=== PATIENT | female | born 2000 | race Caucasian/White ===

== ENCOUNTER 2023-06-30 18:44 | Emergency (ER) | payer OTHER, SELFPAY ==
--- NOTE | 2023-06-30 18:53 | ED.URI ---
HPI - URI/Sore Throat General Chief Complaint: Upper Respiratory Infection Stated Complaint: Sore Throat Source: patient and RN notes reviewed Mode of arrival: ambulatory Limitations: no limitations History of Present Illness HPI Narrative: Patient is a 23-year-old female who presents to the [facility] with complaints of sore throat and headache that started last night. Patient denies known fevers but reports chills. She is unsure of any known sick contacts. She reports history of strep and states that her symptoms are similar to those she has experienced in the past with strep. She also endorses some mild nasal congestion. Denies recent cough. Denies chest pain or shortness of breath. Denies abdominal pain, nausea, vomiting, diarrhea. Related Data Allergies Allergy/AdvReac Type Severity Reaction Status Date / Time No Known Allergies Allergy Verified 06/30/23 19:14 Review of Systems Review of Systems: CONSTITUTIONAL: Denies fever, but reports chills. EYES: Denies visual changes, redness, or discharge. ENT: Denies otalgia. Reports sore throat. CARDIOVASCULAR: Denies chest pain, palpitations, or edema. RESPIRATORY: Denies cough or dyspnea. GASTROINTESTINAL: Denies abdominal pain, nausea, vomiting, or diarrhea. GENITOURINARY: Denies dysuria or hematuria. SKIN: Denies rash or itching. MUSCULOSKELETAL: Denies back pain, joint pain, or myalgia. NEUROLOGIC: Denies numbness or weakness. Reports headache. Pertinent positives per HPI. PMFSH Comments At the time of my signature, I reviewed and agree with the nursing past medical, surgical, social, and family history. There is no relevant family history pertinent to the patient complaint. Exam Narrative: GENERAL: This is a well-nourished, well-developed patient, in no apparent distress. HEAD: normocephalic, atraumatic. EYES: Sclera clear/white. Vision is grossly intact. EARS: External ears normal. Hearing grossly intact. NOSE: External nose normal with no obvious nasal discharge, nares without redness, no rhinorrhea. THROAT: Mucous membranes moist, Oropharyngeal erythema with exudate without ulceration. NECK: Neck supple, non-tender without lymphadenopathy, masses or thyromegaly. CARDIOVASCULAR: Regular rate and rhythm without murmurs, gallops, or rubs. RESPIRATORY: Clear to auscultation. Breath sounds equal bilaterally. No wheezes, rales, or rhonchi. GASTROINTESTINAL: Abdomen soft, non-tender, nondistended. Bowel sounds are active. No hepato-splenomegaly, or palpable masses. No guarding. SKIN: warm, intact with no suspicious lesions or rash, good texture and turgor. NEURO: awake, alert, and oriented to person, place and time. There were no obvious focal neurologic abnormalities. Course Course Level of Care: Express Care Visit Vital Signs Vital signs: Vital Signs Temperature 98.6 F 06/30/23 19:02 Pulse Rate 77 06/30/23 19:02 Respiratory Rate 16 06/30/23 19:02 Blood Pressure 115/75 06/30/23 19:02 Pulse Oximetry 100 06/30/23 19:02 Oxygen Delivery Room Air 06/30/23 19:02 Temperature 98.6 F 06/30/23 19:02 Pulse Rate 77 06/30/23 19:02 Respiratory Rate 16 06/30/23 19:02 Blood Pressure 115/75 06/30/23 19:02 Pulse Oximetry 100 06/30/23 19:02 Oxygen Delivery Room Air 06/30/23 19:02 Reviewed MDM - URI/Sore Throat MDM Narrative Medical decision making narrative: Rapid strep is negative in the office; however we will send to the lab for confirmation; there is a small percentage chance that it can come back positive; if it is, we will call you in 2-3days; and your prescription will be call in to your pharmacy. However, there is NO indication for antibiotic at this time. -Increase your fluids and Vitamin C. -Oral rinses such as: Salt water gargles and/or may use topical anesthetic (eg. Chloraseptic spray) or lozenges to relieve dryness or throat pain. -Take tylenol and ibuprofen as needed for pain and fever as directed. -
[2023-06-30 19:02] VITALS: BP 115/75; PULSE 77; RESP 16; TEMP 37; O2SAT 100
== END 2023-06-30 19:27 | disposition home or self-care (01) ==
PROVIDERS: Emergency Provider Nurse Practitioner
DX: J02.9 Acute pharyngitis, unspecified (principal)
CPT/HCPCS: 87081; 87880; 99213; G0463

== ENCOUNTER 2024-02-12 11:18 | Outpatient (CLI) | payer OTHER, SELFPAY ==
--- NOTE | ~2024-02-12 | US_ITS ---
US pelvic complete w TV Ordering provider: Jeses Queen MD History: . R ovarian cyst . Comparison: None. Technique: Transabdominal and endovaginal ultrasound of the pelvis (Doppler ultrasound interrogation techniques used as needed for this exam.) FINDINGS: CERVIX: Normal. UTERUS: Measures 7.7x 3.4x 4.1 cm in length which is within normal limits and is anteverted. No myom etrial masses. ENDOMETRIUM: Normal in thickness measuring 10.8 mm. No endometrial masses, cysts or fluid. CUL DE SAC: No free fluid. RIGHT OVARY: Normal in size measuring 3.8x 3.4x 2.8 cm. Normal echotexture. Doppler vascular flow pre sent. Anechoic simple cyst is seen measuring 2.1 x 2.3 x 1.9 cm. LEFT OVARY: Normal in size measuring 5.6x 4.5x 4.2 cm. Normal echotexture. Doppler vascular flow pres ent. Complex cyst is seen measuring 2.8 x 3.8 x 3.7 cm. Follow-up advised. ADNEXA: Normal. No mass. IMPRESSION: Simple right ovarian cyst. Complex left ovarian cyst may be hemorrhagic cyst. Follow-up advised. Othe rwise, normal pelvic ultrasound. Reviewed, dictated and finalized at location [facility] IMPRESSION: Simple right ovarian cyst. Complex left ovarian cyst may be hemorrhagic cyst. F ollow-up advised. Otherwise, normal pelvic ultrasound.
== END 2024-02-12 11:19 | disposition home or self-care (01) ==
PROVIDERS: PCP Obstetrics & Gynecology; Visit Provider Obstetrics & Gynecology
DX: N83.201 Unspecified ovarian cyst, right side (principal)
CPT/HCPCS: 76830; 76856

== ENCOUNTER 2024-07-06 09:23 | Outpatient (CLI) | payer OTHER, SELFPAY ==
--- OUTSIDE RECORDS SUMMARY | 2024-07-06 09:38 | XMS_ITS | Referral Summary ---
Author Organization [facility] Address [address] [place] [address] Care Team Providers Care Naprapath Name Role Phone Zaina Garay NP Primary Care Provider [phone] Allergies No known active allergies Medications acetaminophen (TYLENOL) 500 mg tablet Take 1 tablet (500 mg total) by mouth every 6 (six) hours as needed for pain 30 tablet 9 Active Additional Information Patient not taking.Reported on 01/27/2024 ibuprofen (ADVIL,MOTRIN) 200 mg tab/cap Take 2 tablet/capsule (400 mg total) by mouth every 6 (six) hours as needed for pain 9 Active Additional Information Patient not taking.Reported on 01/27/2024 albuterol (PROAIR RESPICLICK) 90 mcg/actuation inhaler Inhale 2 puffs every 6 (six) hours as needed Active cloNIDine (CATAPRES) 0.1 mg tablet Take 1 tablet (0.1 mg total) by mouth 2 (two) times a day 60 tablet 4 Active Additional Information Patient not taking.Reported on 01/27/2024 Active Problems Problem Noted Date Diagnosed Date Tic disorder, unspecified 02/01/2024 Assessment & Plan (02/01/2024 8:06 AM CORPORATE RESPONSIBILITY OFFICER): Spent time discussing course of illness, reviewing hospital workup and coordinating outpatient care. Referral to neurology through [facility] will trigger referral to movement disorder clinics. Will check for Lyme disease as rule out. Referral to neurology. History of malignant carcinoid tumor 01/19/2024 Jerking movements of extremities 01/18/2024 Transient motor tic 01/17/2024 Assessment & Plan (01/17/2024 10:12 PM CORPORATE RESPONSIBILITY OFFICER): Signs and symptoms consistent with transient motor tic secondary to a viral illness. Also on differential is new onset motor tic disorder including Tourette's syndrome. Minimal improvement with Ativan and Keppra. 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 Undergoes annual CT monitoring. CT abdo/pelvis: 4.5 cm x 4.2 cm cystic lesion on the right ovary. This finding would be better evaluated with pelvic ultrasound There is a small amount of free fluid within the cul-de-sac and adnexal regions bilaterally. Correlate clinically for possible ruptured ovarian cyst. Appendix surgically absent. Raynaud's phenomenon without gangrene 06/28/2020 Resolved Problems Problem Noted Date Diagnosed Date Resolved Date Cystitis 01/18/2024 02/01/2024 Carcinoid tumor of appendix, benign 08/21/2021 02/01/2024 [facility] 08/21/2021 02/01/2024 Assessment & Plan (08/24/2021 5:57 PM CDT): A(n) initial well visit to establish care has been performed today. Lizeth Pop is up to date on screening tests. She is in need of None- no screening indicated at this time. She is not up to date on needed preventative vaccinations; She is in need of Tdap/Td. Awaiting outside records. 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 02/01/2024 Abdominal pain 06/28/2020 02/01/2024 Weight loss 06/28/2020 02/01/2024 Lipoma of torso 11/12/2018 02/01/2024 Overview (11/12/2018): Added automatically from request for surgery [id number] Arthralgia of hip 05/18/2016 02/01/2024 Open wound of heel 12/07/2013 Pain in forearm 02/05/2013 02/01/2024 SOB (shortness of breath) Immunizations Immunization Administration Dates Next Due DTaP 03/27/2007, 4,2002, 003,2002 Hep A, Pediatric 07/21/2015,06/01/2014 Hep B Vaccine 2003,2002,2002 HiB 2003,2002,2002 Influenza, Unspecified 02/17/2021(Deferr ed: Patient Refused),02/18/2020(Deferred: Patient Refused) MMR 03/27/2007,2003 Meningococcal ACWY, Unspecified 08/17/2019,06/01 Pneumococcal Conjugate, Unspecified 2002,0 2002,2002 Polio, Unspecified 03/27/2007, 3,2002, 003 Tdap 06/01/2014 Varicella 03/27/2007,06/02/2003 Social History Tobacco Use Types Packs/Day Years Used Date Smoking Tobacco: Never Smokeless Tobacco: Never Tobacco Cessation:Counseling Given: No AUDIT-C Answer Date Recorded Q1: How often do you have a drink containing alcohol? Never 01/17/2024 Q2: How many drinks containi ng alcohol do you have on a typical day when you are drinking? Patient does not drink Q3: How often do you have si x or more drinks on one occasion? Never 01/17/2024 PHQ-2 Answer Date Recorded PHQ-2 Total Score (If total score is 3 or more points, staff should administer the PHQ-9) 0 01/27/2024 Exercise Vital Sign Answer Date Recorde d On average, how many days pe r week do you engage in moderate to strenuous exercise (like a brisk walk)? 4 days Minutes of Exercise per Session Not on file 08/21/2021 Personal Safety Answer Date Recorded Have you ever been in or are you currently in a harmful physical or emotional relationship or is someone making you feel afraid or unsafe? Denies 01/17/2024 Education Answer Date Recorded What is the highest level of school you have completed or the highest degree you have received? High school graduate 08/21/2021 Comments No Sex and Gender Information Value Date Recorded Sex Assigned at Not on file Legal Sex Female 4:29 AM CORPORATE RESPONSIBILITY OFFICER Gender Identity Not on file Sexual Orientation Not on file Occupation Industry Job Start Date Job End Date teacher Not on file Not on file Not on file Last Filed Vital Signs Vital Sign Reading Time Taken Comments Blood Pressure 118/78 01/27/2024 1:05 PM CORPORATE RESPONSIBILITY OFFICER Pulse 62 01/27/2024 1:05 PM CORPORATE RESPONSIBILITY OFFICER Temperature 36.6 C (97.9 F) 01/27/2024 1:05 PM CORPORATE RESPONSIBILITY OFFICER Respiratory Rate 16 01/27/2024 1:05 PM CORPORATE RESPONSIBILITY OFFICER Oxygen Saturation 99% 01/27/2024 1:05 PM CORPORATE RESPONSIBILITY OFFICER Inhaled Oxygen Concentration - - Weight 55.1 kg (121 lb 8 oz) 01/27/2024 1:05 PM CORPORATE RESPONSIBILITY OFFICER Height 160 cm (5' 3 ) 01/27/2024 1:05 PM CORPORATE RESPONSIBILITY OFFICER Body Mass Index 21.52 01/27/2024 1:05 PM CORPORATE RESPONSIBILITY OFFICER Plan of Treatment Not on file Insurance [facility] [place]ICE [place] [place] [address] [facility] CHOICE PLUS Advance Directives For more information, please contact: [phone] * Full Code (Latest Code Status on File) Date Activated Date Inactivated Comments 01/17/2024 6:41 PM 01/19/2024 9:51 PM Care Teams Naprapath Relationship Specialty Start Date End Date Zaina Garay NP [address] [facility] [address] [place] [address] PCP - General Family Medicine 02/03/24
--- OUTSIDE RECORDS SUMMARY | 2024-07-06 09:38 | XMS_ITS | Clinical Summary ---
Author Organization [facility] Address [address] [place] [address] Care Team Providers Care Child Therapist Name Role Phone Zaina Garay NP Primary Care Provider [phone] Allergies No known active allergies Medications acetaminophen [...] 02/01/2024 Assessment & Plan (02/01/2024 8:06 AM SOCIAL SECRETARY): Spent time discussing course of illness, reviewing hospital workup and coordinating outpatient care. Referral to neurology through [facility] will trigger referral to movement disorder clinics. Will check for Lyme disease as rule out. Referral to neurology. 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 Also on differential is new onset motor tic disorder including Tourette's syndrome. Minimal improvement with Ativan and Keppra. - Neurology consulted, will evaluate in morning - consider MRI brain - also consider electrolyte abnormalities although normal CMP History of appendectomy 01/17/2024 Assessment & Plan (01/17/2024 8:38 PM SOCIAL SECRETARY): Hx appendectomy for carcinoid tumour in appendix [...] benign 08/21/2021 02/01/2024 [facility] 08/21/2021 02/01/2024 Assessment [...] (11/12/2018): Added automatically from request for surgery [id number] Arthralgia of hip 05/18/2016 02/01/2024 Open wound [...] 03/27/2007, 3,2002, 003 Tdap 06/01/2014 Varicella 03/27/2007,06/02/2003 Surgical History Surgery Date Site/Laterality Comments EAR SURGERY 02/17/2009 - 02/16/2010 Left Ear Surgery - (Added by TW Conv) APPENDECTOMY 12/08/2020 Medical History Medical History Date Comments Asthma Carcinoid tumor of appendix, benign (HCC) 2021 Celiac disease Raynaud's disease without gangrene Vitiligo 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 Family History Medical History Relation Name Comments No Known Problems Brother 1 No Known Problems Brother 2 No Known Problems Father No Known Problems Mother Relation Name Status Comments Brother 1 Alive Brother 2 Alive Father Alive Maternal Grandfather Alive Maternal Grandmother Alive Mother Alive Paternal Grandfather Alive Paternal Grandmother Alive Sister Alive Social History Tobacco Use Types Packs/Day Years [...] on file Legal Sex Female 4:29 AM SOCIAL SECRETARY Gender Identity Not on file Sexual Orientation Not on file Occupation Industry Job Start Date Job End Date teacher Not on file Not on file Not on file Obstetrics History Last Filed Vital Signs Vital Sign Reading Time Taken Comments Blood Pressure 118/78 01/27/2024 1:05 PM SOCIAL SECRETARY Pulse 62 01/27/2024 1:05 PM SOCIAL SECRETARY Temperature 36.6 C (97.9 F) 01/27/2024 1:05 PM SOCIAL SECRETARY Respiratory Rate 16 01/27/2024 1:05 PM SOCIAL SECRETARY Oxygen Saturation 99% 01/27/2024 1:05 PM SOCIAL SECRETARY Inhaled Oxygen Concentration - - Weight 55.1 kg (121 lb 8 oz) 01/27/2024 1:05 PM SOCIAL SECRETARY Height 160 cm (5' 3 ) 01/27/2024 1:05 PM SOCIAL SECRETARY Body Mass Index 21.52 01/27/2024 1:05 PM SOCIAL SECRETARY Plan of Treatment Health Maintenance Due Date Last Done Comments Cervical Cancer Screening 2002 Chlamydia and Gonorrhea (GC/CT) Screening 2002 Hepatitis C Screening 2002 HPV Vaccines (1 - 3-dose series) 2017 Meningococcal B Vaccine (1 of 2 - Standard) 2018 Regular Well Visit/Exam 18-64 08/21/2022 08/21/2021 DTaP/Tdap/Td Vaccine (7 - Td or Tdap) 06/01/2024 06/01/2014, 03/27/2007, 06/02/2003, Additional history exists Influenza Vaccine (Season Ended) 2024 Depression Screening 01/26/2025 01/27/2024, 08/22/19 22 Pneumococcal vaccine <65 Aged Out 003, 2002, 2002 No longer eligible based on patient's age to complete this topic Hepatitis B Screening Completed 2003 , 2002, 2002 Varicella Vaccines Completed 03/27/2007, 06/02/2003 Insurance [facility]/PPO Address: [facility] [address] [place] [address] [facility] CHOICE PLUS [facility]/PPO Address: [address] [address] [place] [address] CHOICE PLUS [facility] H[facility]/PPO Address: [address] [place] [id number] Advance Directives For more information, please contact: [phone] * Full Code (Latest Code Status on File) Date Activated Date Inactivated Comments 01/17/2024 6:41 PM 01/19/2024 9:51 PM Care Teams Child Therapist Relationship Specialty Start Date End Date Zaina Garay NP [address] [facility] [address] [place] [address] PCP - General Family Medicine 02/03/24
[2024-07-06 09:58] LABS: Basophils Percent Auto 0.3 % (0.2-1.2); Eosinophils Absolute Auto 0.1 K/mm3 (0-0.3); Eosinophils Percent Auto 0.9 % (0-4.4); Hematocrit 42.1 % (37.0-47.0); Hemoglobin 13.9 g/dL (12.0-15.0); Immature Granulocyte Absolute 0.02 K/mm3 (0.00-0.031); Immature Granulocyte Percent A 0.3 % (0-0.5); Lymphocytes Percent Auto 22.8 % (18.3-44.2); Mean Corpuscular Hemoglobin 27.2 pg (26-34); Mean Corpuscular Volume 82.4 fl (80-100); Mean Platelet Volume 10.4 fl (7.4-10.4); Monocytes Absolute Auto 0.4 K/mm3 (0.1-0.6); Monocytes Percent Auto 6.4 % (2.6-8.5); Neutrophils Absolute Auto 4.6 K/mm3 (1.3-6.7); Neutrophils Percent Auto 69.3 % (45.5-73.1); Platelet Count Result 279 k/mm3 (150-375); Red Blood Count 5.11 M/mm3 (4.2-5.4); Red Cell Distribution Width 12.4 % (11.5-14.5); White Blood Count 6.6 K/mm3 (4.5-10.0)
[2024-07-06 10:35] LABS: Syphilis IgG/IgM Antibody Negative (Negative)
[2024-07-06 10:39] LABS: Hepatitis B Surface Antigen Negative (Negative); Rubella IgG Antibody 6.5 IU/ML
[2024-07-06 10:48] LABS: HIV 1/2 Ab P24 Ag Result Negative (Negative)
[2024-07-07 08:37] LABS: Varicella IgG Antibody <1.00 S/CO
== END 2024-07-06 09:24 | disposition home or self-care (01) ==
LOC: ANHLAB 09:25
PROVIDERS: PCP Family Medicine; Visit Provider Obstetrics & Gynecology
DX: N91.2 Amenorrhea, unspecified (principal)
CPT/HCPCS: 36415; 84702; 85025; 86593; 86644; 86703; 86747; 86762; 86787; 86850; 86900; 86901; 87086; 87340; G0432

== ENCOUNTER 2024-07-15 08:50 | Outpatient (CLI) | payer OTHER, SELFPAY ==
--- NOTE | ~2024-07-15 | US_ITS ---
Pelvic ultrasound. Clinical History: First trimester , establish dates and viability Technique: Realtime transabdominal and transvaginal scanning of the pelvis was performed. Color flow Doppler and Doppler spectral analysis were performed. Findings: The uterus is anteverted, and contains an intrauterine gestation. Moselle-rump length of 1.4 cm corresponds to an estimated gestational age of 7 weeks 5 days. heart rate is 174 bpm. The right ovary measures 4.1 x 2.4 x 3.2 cm. No significant right ovarian or adnexal mass is seen. The left ovary measures 3.3 x 2.0 x 2.3 cm. No significant left ovarian or adnexal mass is seen. There is no evidence of free fluid in the cul de sac. Impression: Live intrauterine gestation, with estimated gestational age of 7 weeks 5 days. heart rate is 17 4 bpm. Sonographic MARTÍNEZ is 02/24/2025. Reviewed, dictated and finalized at [facility]. Impression: Live intrauterine gestation, with estimated gestational age of 7 weeks 5 days. heart rate is 174 bpm. Sonographic MARTÍNEZ is 02/24/2025.
== END 2024-07-15 08:51 | disposition home or self-care (01) ==
PROVIDERS: PCP Family Medicine; Visit Provider Obstetrics & Gynecology
DX: Z34.91 Encounter for supervision of normal pregnancy, unspecified, first trimester (principal); Z3A.01 Less than 8 weeks gestation of pregnancy
CPT/HCPCS: 76801; 76817